=== PATIENT | male | born 1985 | race Caucasian/White ===

== ENCOUNTER 2017-02-22 18:18 | Emergency (ER) | payer OTHER ==
[~2017-02-22] VITALS: Ht 172.7 cm; Wt 68.2 kg
[2017-02-22 18:22] VITALS: BP 145/77; TEMP 98.4
[2017-02-22] MEDS ORDERED: CEPHALEXIN500 M1 PO (19:38)
[2017-02-22] MEDS ORDERED: TYLENOL W/COD1 UDTAB PO (19:38)
[2017-02-22 19:47] VITALS: PULSE 59
== END 2017-02-22 19:47 | disposition home or self-care (01) ==
LOC: EDSEX 18:18 → COL.ER 18:18
DX: S61.011A Laceration without foreign body of right thumb without damage to nail, initial encounter (principal); W27.4XXA Contact with kitchen utensil, initial encounter; Y92.000 Kitchen of unspecified non-institutional (private) residence as the place of occurrence of the external cause; Z23 Encounter for immunization